=== PATIENT | female | born 1990 | race American Indian/Alaskan Native ===

== ENCOUNTER → 2020-07-18 | Emergency (ER) | payer MEDICAID ==
[~2020-07-18] MED LIST: GLUCAGON (HUMAN RECOMBINANT) 1 MG/ML INJ ONE
[2020-07-18 15:53] VITALS: BP 133/71
--- NOTE | 2020-07-18 16:24 | Event Note ---
ED Screening Note Date of service: 07/18/20 Time: 16:20 ED Screening Note: 30-year-old -[place] female presents to the emergency room complaining of irregular vaginal bleeding for 2 weeks. Patient also admits to light abdominal cramping. Last menstrual period she started it was 07/08/2020 but has continued bleeding. Patient is 2 para 2. She reports she is gone to about 10-12 pads a day. She has a past medical history of asthma. Denies any dysuria urinary frequency or urgency. This initial assessment/diagnostic orders/clinical plan/treatment(s) is/are subject to change based on patients health status, clinical progression and re- assessment by fellow clinical providers in the ED. Further treatment and workup at subsequent clinical providers discretion. Patient/guardian urged not to elope from the ED as their condition may be serious if not clinically assessed and managed. Initial orders include:
[2020-07-18 16:43] LABS: Basophils # (Auto) 0.1 K/mm3 (0.0-0.1); Basophils % (Auto) 0.8 % (0.0-1.8); Eosinophils # (Auto) 0.2 K/mm3 (0.0-0.4); Eosinophils % (Auto) 2.7 % (0.0-4.3); Hemoglobin 12.3 gm/dl (10.1-14.3); Lymphocytes # (Auto) 1.8 K/mm3 (1.2-5.4); Mean Corpuscular HGB Conc 34 % (30-34); Mean Corpuscular Volume 95 fl (79-97); Monocytes # (Auto) 0.4 K/mm3 (0.0-0.8); Platelet Count 414 K/mm3 (140-440); Red Blood Count 3.79 M/mm3 (3.65-5.03); Red Cell Distribution Width 13.5 % (13.2-15.2)
--- NOTE | 2020-07-18 17:17 | Emergency Department Report ---
ED Female HPI - General Chief complaint: Vaginal Bleeding Stated complaint: VAGINAL BLEEDING Source: patient Mode of arrival: Ambulatory Limitations: No Limitations - History of Present Illness Initial comments: 30-year-old -[place] female presents to the emergency room complaining of irregular vaginal bleeding for 2 weeks associated with mild abdominal cramping to lower region. Has used about 10 pads today. no dizziness or chest pain. No trauma or sob. MD Complaint: vaginal bleeding -: Gradual, week(s) (2) Location: suprapubic Radiation: suprapubic Severity: mild, moderate Quality: cramping, aching Consistency: constant Improves with: none Worsens with: none Are you Now?: No Associated Symptoms: vaginal bleeding. denies: loss of appetite, dysuria, shortness of breath, syncope, weakness - Related Data Previous Rx's Medication Instructions Recorded Last Taken Type Ketorolac [Toradol] 10 mg PO Q6H PRN #14 tablet 07/18/20 Unknown Rx medroxyPROGESTERone ACETATE 10 mg PO DAILY #10 tablet 07/18/20 Unknown Rx [Provera] Allergies Allergy/AdvReac Type Severity Reaction Status Date / Time No Known Allergies Allergy Unverified 07/18/20 15:53 ED Review of Systems ROS: Stated complaint: VAGINAL BLEEDING Other details as noted in HPI Comment: All other systems reviewed and negative ED Past Medical Hx - Past Medical History Previous Medical History?: Yes Hx Asthma: Yes - Surgical History Past Surgical History?: No - Medications Home Medications: Home Medications Medication Instructions Recorded Confirmed Last Taken Type Ketorolac [Toradol] 10 mg PO Q6H PRN #14 tablet 07/18/20 Unknown Rx medroxyPROGESTERone ACETATE 10 mg PO DAILY #10 tablet 07/18/20 Unknown Rx [Provera] ED Physical Exam - General Limitations: No Limitations General appearance: alert, in no apparent distress - Head Head exam: Present: atraumatic, normocephalic - Eye Eye exam: Present: normal appearance, PERRL, EOMI Pupils: Present: normal accommodation - ENT ENT exam: Present: normal exam, mucous membranes moist, TM's normal bilaterally - Neck Neck exam: Present: normal inspection, full ROM. Absent: tenderness, lymphadenopathy - Respiratory Respiratory exam: Present: normal lung sounds bilaterally. Absent: respiratory distress, wheezes, rales, rhonchi, chest wall tenderness, accessory muscle use, decreased breath sounds - Cardiovascular Cardiovascular Exam: Present: regular rate, normal rhythm. Absent: systolic murmur, diastolic murmur, rubs, gallop - GI/Abdominal GI/Abdominal exam: Present: soft, normal bowel sounds. Absent: guarding, ilan ound, hyperactive bowel sounds, hypoactive bowel sounds, organomegaly - Extremities Exam Extremities exam: Present: normal inspection, normal capillary refill. Absent: tenderness, pedal edema, joint swelling - Back Exam Back exam: Present: normal inspection. Absent: CVA tenderness (R), CVA tenderness (L), paraspinal tenderness, vertebral tenderness - Neurological Exam Neurological exam: Present: alert, oriented X3, CN II-XII intact, normal gait - Psychiatric Psychiatric exam: Present: normal affect, normal mood - Skin Skin exam: Present: warm, dry, intact, normal color. Absent: rash ED Course Vital Signs 07/18/20 15:53 Temperature 98.4 F Pulse Rate 78 Respiratory 16 Rate Blood Pressure 133/71 [Right] O2 Sat by Pulse 98 Oximetry ED Medical Decision Making - Lab Data Result diagrams: 07/18/20 16:32 Lab Results 07/18/20 07/18/20 Range/Units 16:32 16:32 WBC 7.1 (4.5-11.0) K/mm3 RBC 3.79 (3.65-5.03) M/mm3 Hgb 12.3 (10.1-14.3) gm/dl Hct 36.0 (30.3-42.9) % MCV 95 (79-97) fl MCH 33 H (28-32) pg MCHC 34 (30-34) % RDW 13.5 (13.2-15.2) % Plt Count 414 (140-440) K/mm3 Lymph % (Auto) 26.0 (13.4-35.0) % [place] % (Auto) 6.0 (0.0-7.3) % Eos % (Auto) 2.7 (0.0-4.3) % Baso % (Auto) 0.8 (0.0-1.8) % Lymph # (Auto) 1.8 (1.2-5.4) K/mm3 [place] # (Auto) 0.4 (0.0-0.8) K/mm3 Eos # (Auto) 0.2 (0.0-0.4) K/mm3 Baso # (Auto) 0.1 (0.0-0.1) K/mm3 Seg Neutrophils % 64.5 (40.0-70.0) % Seg Neutrophils # 4.6 (1.8-7.7) K/mm3 HCG, Quant < 2 (0-4) mIU/mL - Medical Decision Making Female presents emergency department with over 14 days of episodic vaginal bleeding most likely of a nonemergent etiology. Based on the history, examination, the ED work-up patient's presentation not consistent with an ectopic , molar , life threatening coagulopathy, serious bacterial infection, central process or other emergency. Patient's bleeding is most likely secondary to, fibroids, or the nonemergent cause of abnormal uterine bleeding. No vaginal tears were appreciated on examination Disposition: We will discharge home with return precautions and instructions for prompt [employer] follow-up Critical care attestation.: If time is entered above; I have spent that time in minutes in the direct care of this critically ill patient, excluding procedure time. ED Disposition Clinical Impression: Metrorrhagia Disposition: DC-01 TO HOME OR SELFCARE Is pt being admited?: No Does the pt Need Aspirin: No Condition: Stable Instructions: Metrorrhagia, Dysfunctional Uterine Bleeding Prescriptions: medroxyPROGESTERone ACETATE [Provera] 10 mg PO DAILY #10 tablet Ketorolac [Toradol] 10 mg PO Q6H PRN #14 tablet PRN Reason: Pain Referrals: [facility] [Provider Group] - 3-5 Days
[2020-07-18 17:23] LABS: Bilirubin,Urine NEG (Negative); Color,Urine Yellow (Yellow); Mucus,Urine FEW /HPF; Protein,Urine <15 mg/dL mg/dL (Negative)
[2020-07-18 17:30] LABS: Blood,Urine SM (Negative)
== END | disposition home or self-care (01) ==
LOC: ED 15:45
DX: N92.1 Excessive and frequent menstruation with irregular cycle (principal); J45.909 Unspecified asthma, uncomplicated; Z79.899 Other long term (current) drug therapy
CPT/HCPCS: 36415; 81001; 84702; 85025; 99283; J1610

== ENCOUNTER 2021-12-23 03:03 | Emergency (ER) | payer MEDICAID | END 2021-12-23 04:00 | disposition left against medical advice (07) | LOC: ED 03:03 | DX: R07.89 Other chest pain (principal); M54.2 Cervicalgia; Z53.21 Procedure and treatment not carried out due to patient leaving prior to being seen by health care provider ==